=== PATIENT | female | born 1990 | race Caucasian/White ===

== ENCOUNTER 2019-11-25 16:33 | Emergency (ER) | payer MEDICAID, SELFPAY ==
[2019-11-25 16:37] VITALS: BP 155/108; PULSE 85; RESP 15; TEMP 36.9; O2SAT 97; BMI 35.9
--- NOTE | 2019-11-25 16:47 | W.ED.GENADLT ---
HPI - General Adult General: Chief complaint: Dental/Oral Stated complaint: dental pain Time Seen by Provider: 11/25/19 16:42 History of Present Illness: HPI narrative: Patient complains about right upper molar pain x2 to 3 days Tylenol is not helping her at all he has a history of dental caries and abscesses has a dental appointment next week cannot stand the discomfort right now and would like something to help. MD complaint: Dental caries Onset (ago): day(s) Location: mouth Severity: moderate and similar to prior episodes Quality: aching Pain Consistency: constant Relieving factors: none Associated symptoms: Deny chest pain, dyspnea, fevers/chills, headache(s), nausea, rash or vomiting Review of Systems Const: Denies: fever, chills or body aches Eyes: Denies: change in vision or blurry vision ENMT: Reports: other (Dental pain); Denies: throat pain or nasal congestion Card: Denies: chest pain or shortness of breath on exertion Resp: Denies: shortness of breath, productive cough or non-productive cough GI: Denies: abdominal pain, nausea or vomiting Musc: Denies: extremity pain Skin/Breast: Denies: rash Neuro: Denies: headache Psych: Denies: anxiety or depression [place]/Lymph: Denies: easy bruising PFSH ED PFSH: Social History Smoking and tobacco status: current every day smoker Physical Exam Const: COMMON NORMALS: no apparent distress, average body habitus and oriented x3 HENMT: COMMON NORMALS: normocephalic HEAD & SCALP: normal to inspection and normocephalic FACE & SINUS: normal facial exam MOUTH: other (Patient has gingivitis inflammation gums dental caries tenderness to the gum above the upper right molars.) Eye: COMMON NORMALS: conjunctivae normal GENERAL EYE: normal appearance of both eyes CONJUNCTIVA: Yes conjunctivae normal Neck/C-Spine: COMMON NORMALS: no JVD Chest: COMMONS NORMALS: inspection of chest normal Resp: COMMON NORMALS: normal respiratory effort and clear to auscultation bilaterally AUSCULTATION: clear to auscultation bilaterally Cardio: COMMON NORMALS: no JVD, regular rate and regular rhythm RATE: regular rate RHYTHM: regular rhythm GI: COMMON NORMALS: normal to inspection, nondistended, normoactive bowel sounds Extremity: COMMON NORMALS: normal to inspection and full ROM Neuro: COMMON NORMALS: oriented x3 Course Vital Signs: Vital signs: Vital Signs Temperature 98.4 F 11/25/19 16:37 Pulse Rate 85 11/25/19 16:37 Respiratory Rate 15 11/25/19 16:37 Blood Pressure 155/108 11/25/19 16:37 Pulse Oximetry 97 11/25/19 16:37 Coding Level of Care Code ED Fruit Pitter for Dennis Romero
== END 2019-11-25 16:56 | disposition home or self-care (01) ==
LOC: ER 17:19
PROVIDERS: Emergency Provider Nurse Practitioner Family; Family Provider Family Medicine
DX: K02.9 Dental caries, unspecified (principal); K05.10 Chronic gingivitis, plaque induced; F17.200 Nicotine dependence, unspecified, uncomplicated
CPT/HCPCS: 99281

== ENCOUNTER → 2020-01-13 13:22 | Outpatient (BNVA) | payer MEDICAID, SELFPAY | PROVIDERS: Family Provider Family Medicine; Visit Provider Nurse Practitioner Family | DX: R30.0 Dysuria (principal); N30.00 Acute cystitis without hematuria; N76.0 Acute vaginitis | CPT/HCPCS: 81000 ==

== ENCOUNTER 2020-04-29 17:35 | Emergency (ER) | payer MEDICAID, SELFPAY ==
[2020-04-29 17:39] VITALS: BP 156/97; PULSE 71; RESP 20; TEMP 36.6; O2SAT 98; BMI 37.5
--- NOTE | 2020-04-29 17:49 | ED_ITS ---
Documented by User: [email or web address] Castro 04/29/20 19:00 HPI - Skin/Abscess/Foreign Bdy General: Chief complaint: Skin/Abscess/Foreign Body Stated complaint: pain on ribs and back Time Seen by Provider: 04/29/20 17:49 PFSH ED PFSH: Social History Smoking and tobacco status: current every day smoker Course Vital Signs: Vital signs: Vital Signs Temperature 97.9 F 04/29/20 17:39 Pulse Rate 69 04/29/20 18:30 Respiratory Rate 14 04/29/20 18:30 Blood Pressure 141/90 04/29/20 18:30 Pulse Oximetry 98 04/29/20 18:30 MDM - Skin/Abscess/Foreign Bdy MDM Narrative: Medical decision making narrative: I had originally started chart on patient but Dr. Howard ended up seeing her. I had no active participati on in pts care. Discharge Plan Discharge Patient Disposition: Home Clinical Impression: Herpes zoster Qualifiers: Herpes zoster complications: without complications Qualified Code(s): B02.9 - Zoster without complications Condition: Stable Prescriptions: [place] 5-325 mg tablet 1 tab PO Q6H PRN (Reason: pain) Qty: 14 RF: 0 No Action valacyclovir 1 gram tablet 1,000 mg PO TID 7 Days Qty: 21 RF: 0 lidocaine HCl 2 % cream 1 applic TOPICAL TID PRN (Reason: pain) Qty: 118 RF: 0 Discharge Orders: Discharge Order (Routine); Ordered 04/29/20 Ordered By: Paco Howard Referrals: Angelia Ochoa DO [Primary Care Provider] - 1-3 days Discharge Diet: Advance as tolerated Discharge Activity: Resume usual activity Patient Instructions: Herpes Zoster (ED) Discharge Date/Time: 04/29/20 18:32 Coding Level of Care Code ED Inventory Specialist for Chg Fwd Exam Comprehensive Documented by User: Paco Howard MD 04/29/20 18:25 HPI - Skin/Abscess/Foreign Bdy General: Chief complaint: Skin/Abscess/Foreign Body Stated complaint: pain on ribs and back Time Seen by Provider: 04/29/20 17:49 Source: patient Mode of arrival: ambulatory Limitations: no limitations History of Present Illness: HPI narrative: 21-year-old female who was diagnosed with shingles 3 days ago. She states she is on acyclovir but she is not on any pain meds and has had increased pain. She states her pain is sharp in nature and rates an 8 out of 10. She states she is here for something for pain. Associated symptoms: Deny chills, fever(s), nausea or vomiting Review of Systems Const: Denies: fever(s), chills, body aches or change in appetite Eyes: Denies: blurry vision or eye discomfort ENMT: Denies: throat pain or dental pain Card: Denies: chest pain Resp: Denies: dyspnea GI: Denies: abdominal pain, nausea, vomiting or diarrhea : Denies: dysuria Musc: Denies: neck pain or back pain Skin/Breast: Reports: rash Neuro: Denies: headache(s) Psych: Denies: depression [place]/Lymph: Denies: easy bruising All/Imm: Denies: urticaria PFSH ED PFSH: Social History Smoking and tobacco status: current every day smoker Physical Exam Const: COMMON NORMALS: no acute distress, patient oriented x3 and healthy appearing HENMT: COMMON NORMALS: normocephalic and atraumatic HEAD & SCALP: normoc ephalic and atraumatic Eye: COMMON NORMALS: Equal, round and reactive pupils present and EOMs intact bilaterally PUPIL: Yes Equal, round and reactive pupils present Neck/C-Spine: COMMON NORMALS: full ROM and supple Chest: COMMONS NORMALS: normal inspection of the chest and normal palpation of entire chest wall Resp: COMMON NORMALS: normal respiratory effort, No retractions, No use of accessory muscles and clear to auscultation bilaterally AUSCULTATION: clear to auscultation bilaterally Cardio: COMMON NORMALS: regular rate, regular rhythm and No murmurs present (Cardio) RATE: regular rate RHYTHM: regular rhythm GI: COMMON NORMALS: Normal to inspection, nondistended, normoactive bowel sounds present, Soft to palpation, non-tender and no masses PALPATION: Yes Soft to palpation Extremity: COMMON NORMALS: normal to inspection and full ROM Neuro: COMMON NORMALS: patient oriented x3, moves all extremities and no focal motor deficits Psych: COMMON NORMALS: mental status grossly normal, Normal thought process present and cooperative THOUGHT PROCESS: Normal thought process present Skin: COMMON NORMALS: no wounds NARRATIVE SKIN EXAM: Shingles appearing rash under left breast and left back Course Vital Signs: Vital signs: Vital Signs Temperature 97.9 F 04/29/20 17:39 Pulse Rate 69 04/29/20 18:30 Respiratory Rate 14 04/29/20 18:30 Blood Pressure 141/90 04/29/20 18:30 Pulse Oximetry 98 04/29/20 18:30 MDM - Skin/Abscess/Foreign Bdy MDM Narrative: Medical decision making narrative: Patient presents here with a shingles is already on acyclovir and . She states that she needs something for pain she has had no pain meds and is unable to sleep. Will prescribe her hydrocodone and she is stable for discharge. Discharge Plan Discharge Patient Disposition: Home Clinical Impression: Herpes zoster Qualifiers: Herpes zoster complications: without complications Qualified Code(s): B02.9 - Zoster without complications Condition: Stable Prescriptions: [place] 5-325 mg tablet 1 tab PO Q6H PRN (Reason: pain) Qty: 14 RF: 0 No Action valacyclovir 1 gram tablet 1,000 mg PO TID 7 Days Qty: 21 RF: 0 lidocaine HCl 2 % cream 1 applic TOPICAL TID PRN (Reason: pain) Qty: 118 RF: 0 Discharge Orders: Discharge Order (Routine); Ordered 04/29/20 Ordered By: Paco Howard Referrals: Angelia Ochoa DO [Primary Care Provider] - 1-3 days Discharge Diet: Advance as tolerated Discharge Activity: Resume usual activity Patient Instructions: Herpes Zoster (ED) Discharge Date/Time: 04/29/20 18:32 Coding Level of Care Code ED Inventory Specialist for Allig Fwd Exam Comprehensive
[2020-04-29] MEDS: HYDROcodone-acetaminophen 7.5-325 mg Tablet 1 TAB PO (18:27)
[2020-04-29 18:30] VITALS: BP 141/90; PULSE 69; RESP 14; O2SAT 98
== END 2020-04-29 18:32 | disposition home or self-care (01) ==
PROVIDERS: Emergency Provider Emergency Medicine; PCP Family Medicine
DX: B02.9 Zoster without complications (principal); F17.210 Nicotine dependence, cigarettes, uncomplicated
CPT/HCPCS: 12345; 99281; 99283

== ENCOUNTER → 2020-05-30 10:50 | Outpatient (BNVA) | payer MEDICAID, SELFPAY | PROVIDERS: PCP Family Medicine; Visit Provider Internal Medicine | DX: J06.9 Acute upper respiratory infection, unspecified (principal); Z20.818 Contact with and (suspected) exposure to other bacterial communicable diseases | CPT/HCPCS: 87635 ==

== ENCOUNTER → 2020-09-18 15:01 | Outpatient (BNVA) | payer MEDICAID, SELFPAY | PROVIDERS: PCP Family Medicine; Visit Provider Nurse Practitioner Family | DX: N39.0 Urinary tract infection, site not specified (principal); B37.3 Candidiasis of vulva and vagina; R31.9 Hematuria, unspecified | CPT/HCPCS: 81000 ==

== ENCOUNTER 2020-11-11 19:24 | Emergency (ER) | payer MEDICAID, SELFPAY ==
[2020-11-11 19:43] VITALS: BP 143/90; PULSE 75; RESP 14; TEMP 36.6; O2SAT 98; BMI 37.8
--- NOTE | 2020-11-11 20:45 | W.ED.ABDPA2 ---
HPI - Abdominal Pain General: Chief Complaint: Abdominal Pain Stated Complaint: headache, whole midsection cramping, Time Seen by Provider: 11/11/20 20:20 Source: patient Mode of arrival: ambulatory Limitations: no limitations PFSH ED PFSH: Social History (Updated 09/18/20 @ 14:59 by YAZ Baum) Smoking and tobacco status: current every day smoker Alcohol intake: never Course Vital Signs: Vital signs: Vital Signs Temperature 97.9 F 11/11/20 19:43 Pulse Rate 75 11/11/20 19:43 Respiratory Rate 14 11/11/20 19:43 Blood Pressure 143/90 11/11/20 19:43 Pulse Oximetry 98 11/11/20 19:43 Discharge Plan Discharge Condition: Good Prescriptions: No Action ciprofloxacin HCl [Cipro] 500 mg tablet 500 mg PO BID 7 Days Qty: 14 RF: 0 fluconazole [Diflucan] 150 mg tablet 150 mg PO ONCE Qty: 1 RF: 0 Coding Level of Care Code ED Vacuum Drum Drier Operator for Dennis Romero
--- NOTE | 2020-11-11 21:00 | ED_ITS ---
HPI - Female Genitourinary General: Chief complaint: Abdominal Pain Stated complaint: headache, whole midsection cramping, Time Seen by Provider: 11/11/20 20:20 Source: patient Mode of arrival: ambulatory Limitations: no limitations History of Present Illness: HPI Narrative: Patient is a 30-year-old female who presents to ED today with a complaint of vaginal spotting and lower abdominal cramping. She tells me LMP was 10/12. She states she is concerned because she had spotting with her last miscarriage. She has since had a tubal ligation which is why she is very concerned today. She is not complaining of any urinary symptoms. She is not having any nausea, vomiting, diarrhea, constipation. She has not been running fevers. She denies vaginal discharge or vaginal odor. She denies new sexual partners or concern for STDs. MD elicited complaint: vaginal bleeding (spotting) Pertinent past history: prior miscarriages (one) and tubal ligation Onset (ago): day(s) Severity: mild Vaginal discharge: none Vaginal bleeding: scant Exacerbating factors: none Relieving factors: none Associated symptoms: Deny abdominal pain, headache(s), nausea or vaginal discharge Treatment prior to arrival: none Possible : unsure if Date of Last Menstrual Period: 10/12/20 Related Data: : 5 Review of Systems Const: Denies: fever(s), chills, body aches, fatigue or malaise ENMT: Denies: throat pain or odynophagia Card: Denies: chest pain Resp: Denies: dyspnea GI: Denies: abdominal pain, nausea, vomiting, diarrhea, change in bowel habits or change in stool character : Reports: vaginal bleeding and pelvic pain; Denies: flank pain, difficulty voiding, dysuria, urinary frequency, urinary urgency, urinary hesitancy, hematuria, genital lesions, genital pruritis, vaginal odor or vaginal discharge Musc: Denies: neck pain or back pain Skin/Breast: Denies: rash Neuro: Denies: headache(s), numbness in extremities, weakness in extremities or sensory changes PFSH ED PFSH: Social History (Updated 09/18/20 @ 14:59 by YAZ Baum) Smoking and tobacco status: current every day smoker Alcohol intake: never Female Reproductive History: Date of last menstrual period: 10/12/20 : 5 Physical Exam Const: COMMON NORMALS: no acute distress, patient oriented x3, no limitations and alert GENERAL APPEARANCE: cooperative NUTRITIONAL APPEARANCE: obese morbidly obese ORIENTATION/CONSCIOUSNESS: Yes awake, Yes oriented to person, Yes oriented to place and Yes oriented to time HENMT: COMMON NORMALS: normocephalic and atraumatic HEAD & SCALP: normocephalic and atraumatic Resp: COMMON NORMALS: normal respiratory effort and clear to auscultation bilaterally AUSCULTATION: clear to auscultation bilaterally Cardio: COMMON NORMALS: regular rate and regular rhythm RATE: regular rate RHYTHM: regular rhythm GI: COMMON NORMALS: Normal to inspection, nondistended, normoactive bowel sounds present, Soft to palpation, No hepatosplenomegaly present and no masses INSPECTION: Yes normal to inspection PALPATION: Yes Soft to palpation, Yes Tenderness to palpation present (GI) (mild tenderness throughout mid and lower abdomen; non-surgical exam) and Yes No hepatosplenomegaly present : COMMON NORMALS: Yes no CVA tenderness BLADDER/KIDNEY EXAM: Yes no CVA tenderness Back/Pelvis: COMMON NORMALS: no CVA tenderness Extremity: COMMON NORMALS: normal to inspection GENERAL: Yes normal exam except as noted Neuro: COMMON NORMALS: patient oriented x3 SENSORIUM/ORIENTATION: Yes alert, Yes oriented to person, Yes oriented to place and Yes oriented to time Skin: COMMON NORMALS: no rashes or lesions noted GENERAL SKIN EXAM: no rashes or lesions noted Course Vital Signs: Vital signs: Vital Signs Temperature 97.9 F 11/11/20 19:43 Pulse Rate 75 11/11/20 19:43 Respiratory Rate 14 11/11/20 19:43 Blood Pressure 143/90 11/11/20 19:43 Pulse Oximetry 98 11/11/20 19:43 MDM - Female MDM Narrative: Medical decision making narrative: Patient has a non-surgical abdomen. Her vital signs are stable. is negative. She has no complaints of vaginal discharge, vaginal odor, or concern for STDs. Patient defers pelvic exam. UA is significant for a urinary tract infection. I do not see any need for emergent labs or imaging at this time. She agrees to follow-up with PCP in 3 to 5 days for re-evaluation. We discussed signs and symptoms that would warrant a repeat emergency evaluation. Patient verbalizes understanding. Lab Data: Labs: Lab Results 11/11/20 11/11/20 Range/Units 21:00 21:00 HCG, Qual Negative (Negative) Urine Color Yellow (Yellow) Urine Appearance Sl hazy (CLEAR) Urine pH 5 (5-7) Ur Specific Gravit y 1.025 (1.005-1.030) Urine Protein Neg (Negative) Urine Glucose (UA) Norm (Normal) Urine Ketones Negative (Negative) Urine Blood 2+ H (Negative) Urine Nitrate Positive H (Negative) Urine Bilirubin Neg (Negative) Urine Urobilinogen Norm (Negative) mg/dL Ur Leukocyte Yuko ase Negative (Negative) Urine RBC 5-10 H (0-2) /hpf Urine WBC 0-4 H (0-5) /hpf Ur Squamous Epith Cells 5-10 H (0-5) /hpf Amorphous Sediment Not Reportable Urine Bacteria 3+ H (NONE) /hpf Discharge Plan Discharge Patient Disposition: Home Clinical Impression: Acute cystitis with hematuria Condition: Stable Prescriptions: New Macrodantin 100 mg capsule 100 mg PO BID 7 Days Qty: 14 RF: 0 No Action ciprofloxacin HCl [Cipro] 500 mg tablet 500 mg PO BID 7 Days Qty: 14 RF: 0 fluconazole [Diflucan] 150 mg tablet 150 mg PO ONCE Qty: 1 RF: 0 Discharge Orders: Discharge ED (Routine); Ordered 11/11/20 Ordered By: Patricia Wilson Referrals: Angelia Ochoa DO [Primary Care Provider] - Patient Instructions: Urinary Tract Infection in Women (ED) Coding Level of Care Code ED Relationship Associate for Allig Fwd Exam Comprehensive
[2020-11-11 21:05] LABS: Urine Appearance SL Hazy (CLEAR); Urine Color Yellow (Yellow); pH Urine 5 (5-7)
[2020-11-11 21:06] LABS: Bilirubin Urine Neg (Negative); Blood Urine 2+ (Negative); Glucose Urine UA Norm (Normal); Ketones Urine Negative (Negative); Leukocyte Esterase Urine Negative (Negative); Nitrate Urine Positive (Negative); Protein Urine Neg (Negative); Specific Gravity, Urine 1.025 (1.005-1.030); Urobilinogen Urine Norm (Negative)
[2020-11-11 21:07] LABS: HCG Qualitative Urine. Negative (Negative)
[2020-11-11 21:09] LABS: WBC Urine 0-4 /hpf (0-5)
[2020-11-11 21:10] LABS: Add Urine Culture? Yes; Bacteria Urine 3+ /hpf
[2020-11-11 21:54] VITALS: PULSE 67; RESP 18; O2SAT 98
== END 2020-11-11 21:56 | disposition home or self-care (01) ==
PROVIDERS: Family Medicine; Emergency Provider Physician Assistant; PCP Family Medicine
DX: N30.01 Acute cystitis with hematuria (principal); F17.210 Nicotine dependence, cigarettes, uncomplicated
CPT/HCPCS: 12345; 81001; 81025; 87086; 99281; 99282

== ENCOUNTER → 2020-11-28 14:21 | Outpatient (BNVA) | payer MEDICAID, SELFPAY | PROVIDERS: PCP Family Medicine; Visit Provider Nurse Practitioner | DX: M54.9 Dorsalgia, unspecified (principal); N39.0 Urinary tract infection, site not specified | CPT/HCPCS: 81000; 81025; 87077; 87086; 87184 ==

== ENCOUNTER → 2020-11-29 15:50 | Outpatient (BNVA) | payer MEDICAID, SELFPAY | PROVIDERS: PCP Family Medicine; Visit Provider Obstetrics & Gynecology | DX: N73.0 Acute parametritis and pelvic cellulitis (principal); N91.5 Oligomenorrhea, unspecified; N93.8 Other specified abnormal uterine and vaginal bleeding | CPT/HCPCS: 83001; 84146; 84443; 84702; 85025 ==

== ENCOUNTER → 2020-12-10 13:39 | Outpatient (BNVA) | payer MEDICAID, SELFPAY | PROVIDERS: PCP Family Medicine; Visit Provider Obstetrics & Gynecology | DX: R10.2 Pelvic and perineal pain (principal); N91.3 Primary oligomenorrhea | CPT/HCPCS: 76830 ==

== ENCOUNTER → 2021-01-24 10:29 | Outpatient (BNVA) | payer MEDICAID, SELFPAY | PROVIDERS: PCP Family Medicine; Visit Provider Obstetrics & Gynecology | DX: Z01.812 Encounter for preprocedural laboratory examination (principal); Z20.822 Contact with and (suspected) exposure to COVID-19 | CPT/HCPCS: 87635 ==

== ENCOUNTER 2021-01-29 08:36 | Day surgery (SDC) | payer MEDICAID, SELFPAY ==
[2021-01-27 11:35] VITALS: BMI 40.5
--- NOTE | 2021-01-27 12:00 | ANES.PREANE2 ---
Pre-Anesthetic Assessment Pre-Anesthetic Assessment: Height/Weight: Height 1.63 m Weight 107.048 kg Preop Diagnosis: Cardiac pelvic pain Proposed Procedure: Operation Date: 01/29/21 08:00 Proposed Procedures p Laparoscopy Diagnostic 52569 R10.2(Not Applicable) - Jeffrey Pretty MD Social: Social History: Alcohol and Tobacco Exam: Pre-Anes Outpt Exam: alert and oriented x 3 Airway: Submandibular: WNL Cervical ROM: WNL MP: 2 Pulmonary: Pulmonary: None reported CV/HEM: CV/HEM: None reported : : UTI Anesthetic Plan: ASA status: 2 Anesthesia: Anesthesia Evaluation and General PFSH Anesthesia PFSH: Medical History Cervical cancer Chronic pelvic pain in female Surgical History H/O section H/O LEEP H/O tubal ligation S/P tonsillectomy Family History Mother Hypertension Diabetes Hyperlipidemia Thyroid condition Family/Other Breast cancer paternal aunt, age onset unknown Father Colon cancer age onset unknown Denies family history of Ovarian cancer Clotting disorder Heart disease Anesthesia complication Bleeding disorder Uterine cancer Stroke Social History (Updated 01/27/21 @ 09:00 by Nelida Garvey RN) Smoking and tobacco status: current every day smoker cigarettes Packs smoked per day: 0.5 Alcohol intake: current Alcohol intake frequency: holidays/special occasions only Alcohol type: wine Substance/Drug Use: never Female Reproductive History: Date of last menstrual period: 01/20/21 Data Anesthesia Cardiac Studies: No Data to Display
[2021-01-27 12:14] LABS: Add Urine Microscopic? YES; Bilirubin Urine Neg (Negative); Blood Urine Neg (Negative); Glucose Urine UA Norm (Normal); Ketones Urine Negative (Negative); Leukocyte Esterase Urine Negative (Negative); Nitrate Urine Positive (Negative); Protein Urine Neg (Negative); Specific Gravity, Urine 1.015 (1.005-1.030); Urine Appearance Cloudy (CLEAR); Urine Color Yellow (Yellow); Urobilinogen Urine Norm (Negative); pH Urine 5 (5-7)
[2021-01-27 12:29] LABS: Basophils # 0.1 10^3/uL (0.0-0.1); Basophils % 0.5 %; Eosinophils # 0.2 10^3/uL (0.0-0.8); Eosinophils % 2.5 %; Hematocrit 45.3 % (37.0-47.0); Hemoglobin 14.9 g/dL (11.5-15.3); Lymphocytes # 4.3 10^3/uL (0.8-4.8); Lymphocytes % 47.5 %; Mean Corpuscular HGB Conc 32.9 g/dL (30.0-36.0); Mean Corpuscular Hemoglobin 29.7 pg (28.0-34.0); Mean Corpuscular Volume 90.2 fL (81-99); Mean Platelet Volume 11.4 fL (7.4-10.4); Monocytes # 0.6 10^3/uL (0.2-0.9); Monocytes % 6.3 %; Neutrophils % 42.9 %; Nucleated Red Blood Cells % 0 %; Platelet Count 194 10^3/cmm (130-400); Red Blood Count 5.02 10^6/uL (4.1-5.3); White Blood Count 9.1 10^3/uL (4.0-10.0)
[2021-01-27 12:30] LABS: Blood Urea Nitrogen 6 mg/dL (6-20); Calcium 8.9 mg/dL (8.5-10.5); Carbon Dioxide 24 mmol/L (22-29); Chloride 103 mmol/L (98-107); Glomerular Filtration Rate 188.7 mL/min (90-130); Glucose 86 mg/dL (65-115); Osmolality Calculated 283 mOsm/kg (285-295); Sodium 138 mmol/L (136-145)
[2021-01-27 12:33] LABS: Bacteria Urine TRACE /hpf; RBC Urine 0-4 /hpf (0-2); WBC Urine 0-4 /hpf (0-5)
[2021-01-27 12:34] LABS: Add Urine Culture? No; Amorphous Sediment Urine 2+ /hpf
[2021-01-28 01:56] LABS: OR HCG Qualitative Urine Negative (Negative)
[2021-01-29 09:02] LABS: OR HCG Qualitative Urine Negative (Negative)
[2021-01-29 09:06] VITALS: BP 157/109; PULSE 78; RESP 16; TEMP 36.6; O2SAT 99
[2021-01-29] MEDS: sodium chloride 0.9% 1,000 ML 30 ML IV (09:19)
--- NOTE | 2021-01-29 09:31 | P.ANESUD_ITS ---
Pre-Anesthetic Update Pre-Anesthetic Assessment: Date of Surgery/Procedure: 01/29/21 Preop Marcy gnosis: Cardiac pelvic pain Proposed Procedure: Operation Date: 01/29/21 10:00 Proposed Procedures p Laparoscopy Diagnostic 96033 R10.2(Not Applicable) - Jeffrey Pretty MD Any changes to Pre-Anesthetic Assessment?: No Last Intake: Intake Last Liquid Date 01/28/21 Last Liquid Time 22:00 Last Solid Date 01/28/21 Last Solid Time 22:00 Labs Last 48hrs: Laboratory Results - last 48 hr 01/27/21 01/27/21 01/27/21 11:45 11:45 11:45 WBC 9.1 RBC 5.02 Hgb 14.9 Hct 45.3 MCV 90.2 MCH 29.7 MCHC 32.9 RDW 13.0 Plt Count 194 MPV 11.4 H Neut % (Auto) 42.9 Lymph % (Auto) 47.5 [place] % (Auto) 6.3 Eos % (Auto) 2.5 Baso % (Auto) 0.5 Neut # (Auto) 3.90 Lymph # (Auto) 4.3 [place] # (Auto) 0.6 Eos # (Auto) 0.2 Baso # (Auto) 0.1 Nucleated RBC % (a uto) 0 Nucleated RBCs # 0.0 Sodium Potassium Chloride Carbon Dioxide Anion Gap BUN Creatinine GFR Calculation Glucose Calculated Osmolal ity Calcium Urine Color Yellow Urine Appearance Cloudy Urine pH 5 Ur Specific Gravit y 1.015 Urine Protein Neg Urine Glucose (UA) Norm Urine Ketones Negative Urine Blood Neg Urine Nitrate Positive H Urine Bilirubin Neg Urine Urobilinogen Norm Ur Leukocyte Yuko ase Negative Urine RBC 0-4 H Urine WBC 0-4 H Ur Squamous Epith Cells 5-10 H Amorphous Sediment 2+ Urine Bacteria Trace Urine HCG, Qual Negative Blood Type Rho(D) Type Antibody Screen 01/27/21 01/27/21 01/29/21 11:45 11:45 08:50 WBC RBC Hgb Hct MCV MCH MCHC RDW Plt Count MPV Neut % (Auto) Lymph % (Auto) [place] % (Auto) Eos % (Auto) Baso % (Auto) Neut # (Auto) Lymph # (Auto) [place] # (Auto) Eos # (Auto) Baso # (Auto) Nucleated RBC % (a uto) Nucleated RBCs # Sodium 138 Potassium 4.0 Chloride 103 Carbon Dioxide 24 Anion Gap 15.0 BUN 6 Creatinine 0.4 L GFR Calculation 188.7 H Glucose 86 Calculated Osmolal ity 283 L Calcium 8.9 Urine Color Urine Appearance Urine pH Ur Specific Gravit y Urine Protein Urine Glucose (UA) Urine Ketones Urine Blood Urine Nitrate Urine Bilirubin Urine Urobilinogen Ur Leukocyte Yuko ase Urine RBC Urine WBC Ur Squamous Epith Cells Amorphous Sediment Urine Bacteria Urine HCG, Qual Negative Blood Type A Positive Rho(D) Type Positive / 4+ Antibody Screen Negative Vitals: Temperature 97.9 F 01/29/21 09:06 Temperature Source Temporal Artery S can 01/29/21 09:06 Pulse Rate 78 01/29/21 09:06 Respiratory Rate 16 01/29/21 09:06 Blood Pressure 157/109 01/29/21 09:06 Blood Pressure Radha n 125 01/29/21 09:06 Pulse Oximetry 99 01/29/21 09:06 Oxygen Delivery Me thod 01/29/21 09:06 Exam: Pre-Anes Outpt Exam: alert, oriented x 3, clear to auscultation bilaterally and regular rate & rhythm Cardiac Studies: No Data to Display
[2021-01-29] MEDS: vancomycin 1,000 MG in sodium chloride 0.9% 250 ML 250 MG IV (10:36)
--- NOTE | 2021-01-29 11:01 | W.PM.OPSUD ---
Surgery/Procedure H&P Update DATE OF PROCEDURE: January 29, 2021 DATE H&P PERFORMED: 01/27/21 H&P UPDATE INFORMATION: I have reviewed H&P completed within last 30 days, I have examined patient prior to procedure and No changes to prior documentation PREOP DIAGNOSIS: Cardiac pelvic pain PLANNED PROCEDURE: Operation Date: 01/29/21 10:00 Proposed Procedures p Laparoscopy Diagnostic 35717 R10.2(Not Applicable) - Jeffrey Pretty MD
--- NOTE | 2021-01-29 12:01 | P.OP_ITS ---
Operative Report Date of procedure: January 29, 2021 Pre-op Diagnosis: Chronic pelvic pain Post-op diagnosis: same Post-op Findings: Pelvic adhesions Procedure Done: Diagnostic laparoscopy. Lysis of adhesions Surgeon: Jeffrey Pretty MD Anesthesia: General Estimated blood loss (mL): 5 IV fluids (mL): 400 Urine output (mL): 100 Findings: Omental adhesions to the anterior abdominal wall and filmy adhesions on left adnexa. Condition: stable Disposition: PACU Brief History: 30-year-old female with history of chronic pelvic pain Procedure: DESCRIPTION OF PROCEDURE: After informed consent, the patient was taken to the operating room where general anesthesia was administered. The patient was examined under anesthesia and found to have a normal uterus with normal adnexa. She was placed in the dorsal lithotomy position and prepped and draped in sterile fashion. Pre- Procedure Time-Out verifying the correct patient identity, correct procedure verified with consent, correct site and side, correct patient position, availability of correct implants and any special equipment or requirements was performed and acknowledge by the OR team. A weighted speculum was placed in the vagina, and the anterior lip of cervix was grasped with the single toothed tenaculum. A uterine manipulator was advanced into the endocervical. Tenaculum was removed after uterine manipulator was secured. The speculum was removed from the vagina. An intraumbilical incision was made with a scalpel. While tenting up on the abdomen, a Verres needle with sleeve was admitted into the intra-abdominal cavity. A saline drop test was performed and noted to be within normal limits. Pneumoperitoneum was attained with 4 liters of carbon dioxide. The Verres needle was removed. A 5 mm trocar and sleeve were admitted into the abdomen and laparoscopic confirmation of location was achieved. Omental adhesions were noted on lower midline anterior abdominal wall. A second incision was made left lower quadrant, and a 5 mm trocar and sleeve were admitted into the abdomen under direct, laparoscopic visualization without complication. Abdominal survey revealed normal abdominal anatomy but omental adhesions to suprapubic anterior abdominal wall. The pelvic survey shows normal uterus, left and right adnexa. But bladder adhesions were noted at the lower segment of the uterus. A 5 mm blunt probe was advanced through the second trocar sleeve, and light manipulation of ovaries and uterus to assess the posterior aspects was performed and was normal. Then the Carbon dioxide was allowed to escape from the abdomen. The instruments were removed, and skin cover with a bandage. The instruments were removed from the vagina, and excellent hemostasis was noted. The patient tolerated the procedure well, and sponge, lap and needle count were correct times two. The patient taken to the recovery room in good condition.
[2021-01-29 12:04] VITALS: BP 126/68; PULSE 70; RESP 12; TEMP 36.5; O2SAT 96
[2021-01-29] MEDS: ondansetron 2 mg/ML SDV 2 mL 4 MG IVP (12:07)
[2021-01-29 12:10] VITALS: BP 120/73; PULSE 71; RESP 18; O2SAT 95
[2021-01-29 12:15] VITALS: BP 114/55; PULSE 77; RESP 18; TEMP 36.7; O2SAT 94
[2021-01-29 12:20] VITALS: BP 118/80; PULSE 70; RESP 16; TEMP 36.6; O2SAT 95
[2021-01-29] MEDS: HYDROcodone-acetaminophen 5-325 mg Tablet 1 TAB PO (12:32)
[2021-01-29 12:35] VITALS: BP 129/80; PULSE 64; RESP 16; TEMP 36.7; O2SAT 95
--- NOTE | 2021-01-29 13:27 | ANE.PACU2 ---
Inpatient post-anesthesia follow up: Airway intact: Yes Vital signs: Temperature 98.1 F Pulse Rate 64 Respiratory Rate 16 Blood Pressure 129/80 Pulse Oximetry 95 Oxygen Delivery Me thod Room Air Oxygen Flow Rate Fraction of Inspir ed Oxygen Hydration adequate: Yes Nausea and vomiting: No Pain level: 2 Mental status: Baseline
== END 2021-01-29 13:30 | disposition home or self-care (01) ==
PROVIDERS: Anesthesiology; PCP Family Medicine; Visit Provider Obstetrics & Gynecology
PROC: (CPT 49320; principal; 2021-01-29 10:00)
PROC: (CPT 49320; 2021-01-29 10:00)
DX: N73.6 Female pelvic peritoneal adhesions (postinfective) (principal); R10.2 Pelvic and perineal pain; G89.29 Other chronic pain; F17.210 Nicotine dependence, cigarettes, uncomplicated
CPT/HCPCS: 49320; 36415; 80048; 81001; 81025; 84703; 85025; 86850; 86900; 96365; J1100; J2405; J2704; J2710; J3010; J3370; J3490; J7030; J7050

== ENCOUNTER 2021-04-01 22:22 | Emergency (ER) | payer MEDICAID, SELFPAY ==
[2021-04-01 22:28] VITALS: BP 130/89; PULSE 85; RESP 16; TEMP 36.6; O2SAT 97; BMI 39.4
--- NOTE | 2021-04-01 22:49 | W.ED.GENADLT ---
HPI - General Adult General: Chief complaint: General Medical Stated complaint: swollen anus Time Seen by Provider: 04/01/21 22:32 History of Present Illness: HPI narrative: Patient is a 30-year-old female comes to the ED with rectal pain. she has a history of hemorrhoids in the past. Patient states that her anus hurts whenever she wipes herself or when sitting. There is red blood on toilet paper when she wipes. Symptoms of pain started yesterday, but patient says she has been having some itching down by her anus as well. Denies any lesions or sores on anus or vagina. Associated symptoms: Deny chest pain, dyspnea, headache(s), nausea, rash, palpitations or vomiting Review of Systems Const: Denies: fever(s), chills or fatigue Eyes: Denies: change in vision or eye discomfort ENMT: Denies: throat pain, odynophagia, nasal discharge or nasal congestion Card: Denies: chest pain, palpitations, edema, swelling of feet/ankles, dyspnea on exertion or orthopnea Resp: Denies: dyspnea, productive cough or non-productive cough GI: Reports: rectal pain; Denies: abdominal pain, nausea, vomiting, diarrhea, constipation or hematochezia : Denies: flank pain, dysuria or hematuria Musc: Denies: neck pain, back pain or extremity swelling Skin/Breast: Denies: rash or new lesions Neuro: Denies: headache(s), numbness in extremities or weakness in extremities PFSH ED PFSH: Medical History Aftercare following surgery of the genitourinary system Cervical cancer Chronic pelvic pain in female Surgical History H/O section H/O LEEP H/O tubal ligation S/P tonsillectomy Family History Mother Hypertension Diabetes Hyperlipidemia Thyroid condition Family/Other Breast cancer paternal aunt, age onset unknown Father Colon cancer age onset unknown Denies family history of Ovarian cancer Clotting disorder Heart disease Anesthesia complication Bleeding disorder Uterine cancer Stroke Social History Smoking and tobacco status: current every day smoker cigarettes Packs smoked per day: 0.5 Quit status (tobacco): not considering quitting Second hand smoke exposure: Yes Alcohol intake: current Alcohol intake frequency: holidays/special occasions only Alcohol type: wine Desire information about alcohol rehabilitation?: No Desire information about substance/drug rehabilitation?: No Female Reproductive History: Date of last menstrual period: 03/25/21 Physical Exam Const: COMMON NORMALS: no acute distress, patient oriented x3 and alert GENERAL APPEARANCE: cooperative and comfortable HENMT: COMMON NORMALS: normocephalic HEAD & SCALP: normocephalic MOUTH: Normal oral and palatal mucosa present THROAT: posterior oropharynx normal and uvula midline Neck/C-Spine: COMMON NORMALS: supple GENERAL: Yes normal visual inspection Resp: COMMON NORMALS: normal respiratory effort, No retractions, No use of accessory muscles and clear to auscultation bilaterally AUSCULTATION: clear to auscultation bilaterally Cardio: COMMON NORMALS: regular rate, regular rhythm, S1 normal heart sound present, S2 normal heart sound present, No gallops present (Cardio), No clicks present (Cardio), No murmurs present (Cardio) and Peripheral pulses 2+ throughout RATE: regular rate RHYTHM: regular rhythm HEART SOUNDS: S1 normal heart sound present and S2 normal heart sound present PERIPHERAL PULSES: Peripheral pulses 2+ throughout GI: COMMON NORMALS: Normal to inspection, nondistended, normoactive bowel sounds present, Soft to palpation, non-tender and no masses INSPECTION: No Laceration(s) present (GI) PALPATION: Yes Soft to palpation RECTAL EXAM: External hemorrhoid(s) present, no lesion(s) noted, hemorrhoids External hemorrhoid(s): Yes, no laceration(s) noted and Visual inspection abnormal hemorrhoids OTHER: Rectal exam was performed while nurse Agnieszka was present and in the room. : COMMON NORMALS: Yes no CVA tenderness BLADDER/KIDNEY EXAM: Yes no CVA tenderness Back/Pelvis: COMMON NORMALS: no CVA tenderness Extremity: COMMON NORMALS: normal to inspection Neuro: COMMON NORMALS: patient oriented x3 and moves all extremities SENSORIUM/ORIENTATION: Yes alert Skin: GENERAL SKIN EXAM: dry skin Course Vital Signs: Vital signs: Vital Signs Temperature 97.9 F 04/01/21 22:28 Pulse Rate 88 04/01/21 23:56 Respiratory Rate 16 04/01/21 23:56 Blood Pressure 129/87 04/01/21 23:56 Pulse Oximetry 99 04/01/21 23:56 MDM - General Adult MDM Narrative: Medical decision making narrative: Patient is a 30-year-old female comes to the ED with rectal pain. Patient has a history of hemorrhoids. Patient says she developed some swelling around her anus along with some pain and red blood when she wipes after bowel movements. Patient says before she started having pain she was having a lot of itching down by her rectum. Visual rectal exam was performed and external hemorrhoid seen. Patient was diagnosed with external hemorrhoid and discharged home with a prescription for hydrocortisone cream. She was also told to perform sitz bath to help with symptoms as well. Drink plenty of fluids and eat foods high in fiber such as fruits and vegetables to help have soft normal bowel movements. Follow-up with PCP in 7 to 10 days for reevaluation. Return to ED precautions given. Patient steady with plan. Discharge Plan Discharge Patient Disposition: Home Clinical Impression: External hemorrhoid Condition: Stable Prescriptions: New hydrocortisone-pramoxine 1.85-1.15 % cream 1 applic VA BID PRN (Reason: hemorrhoids) Qty: 60 RF: 0 No Action Midol 500-25 mg tablet 2 tab PO Q6H PRN (Reason: Cramps) RF: 0 cetirizine [Zyrtec] 10 mg Tablet 10 mg PO DAILY PRN (Reason: allergy symp) RF: 0 ibuprofen 800 mg tablet 800 mg PO TID PRN (Reason: pain) Qty: 60 RF: 0 Discharge Orders: Discharge ED (Routine); Ordered 04/01/21 Ordered By: Darryn Bethea Referrals: Angelia Ochoa DO [Primary Care Provider] - Discharge Diet: Regular Discharge Activity: Resume usual activity Patient Instructions: Hemorrhoids (ED), Sitz Bath (GEN) Activity Restrictions/Additional Instructions: Follow-up with medical provider as directed in 5 to 7 days for reevaluation. Take sitz bath up to 3 times a day for 10 to 15 minutes each session. Take medications as prescribed. You can also purchase [id number] hemorrhoid cream such as Preparation H to use as well as needed. Make sure to eat a high-fiber diet with fruits and vegetables to limit any constipation or straining when having bowel movements. Return to the ER or your medical provider if condition worsens. Please read and understand discharge instructions. Thank you for choosing [facility] for your healthcare needs today. Please realize this is an emergency room and that we are providing you with a medical screening exam and this may not be complete and all inclusive of all the testing and or work up that you may need to determine your ailment or severity of your illness. It is very important that you follow up as instructed or that you return to the Emergency Department should you have concerns or if your condition changes or worsens in any way. Coding Level of Care Code ED [employer] for [employer] Exam Comprehensive
--- NOTE | 2021-04-01 23:34 | PC.NURSE ---
Assisted [place] with rectal exam; obvious visible hemmorhoids noted.
[2021-04-01] MEDS: HYDROcodone-acetaminophen 7.5-325 mg Tablet 1 TAB PO (23:55)
[2021-04-01 23:56] VITALS: BP 129/87; PULSE 88; RESP 16; O2SAT 99
== END 2021-04-01 23:57 | disposition home or self-care (01) ==
PROVIDERS: Emergency Provider Physician Assistant; PCP Family Medicine
DX: K64.4 Residual hemorrhoidal skin tags (principal); Z85.41 Personal history of malignant neoplasm of cervix uteri; F17.210 Nicotine dependence, cigarettes, uncomplicated
CPT/HCPCS: 99283

== ENCOUNTER → 2021-07-29 10:52 | Outpatient (BNVA) | payer MEDICAID, SELFPAY | PROVIDERS: PCP Family Medicine; Visit Provider Family Medicine | DX: Z01.419 Encounter for gynecological examination (general) (routine) without abnormal findings (principal); R10.2 Pelvic and perineal pain; G89.29 Other chronic pain; L65.9 Nonscarring hair loss, unspecified; R30.0 Dysuria; R81 Glycosuria | CPT/HCPCS: 80053; 81000; 83036; 84443; 85025; 87077; 87086; 87184; 87624 ==

== ENCOUNTER 2021-09-30 11:43 | Emergency (ER) | payer MEDICAID, SELFPAY ==
--- NOTE | 2021-09-30 12:12 | XRR_ITS ---
PROCEDURE INFORMATION: Exam: XR Chest Exam date and time: 09/30/2021 12:12 PM Age: 31 years old Clinical indication: Cough; Additional info: Cough, congestion TECHNIQUE: Imaging protocol: XR of the chest. Views: 1 view. COMPARISON: ES surgery / GI images 01/29/2021 9:57 AM FINDINGS: Lungs: Unremarkable. No consolidation. Pleural spaces: Unremarkable. No pleural effusion. No pneumothorax. Heart/Mediastinum: Unremarkable. No cardiomegaly. Bones/joints: Unremarkable. XR/XR chest 1V portable [id number] IMPRESSION: No acute findings.
[2021-09-30 12:13] VITALS: BP 126/82; PULSE 72; RESP 14; TEMP 37.1; O2SAT 97; BMI 37.8
[2021-09-30 14:11] LABS: Basophils % 0.3 %; Eosinophils # 0.2 10^3/uL (0.0-0.8); Eosinophils % 1.6 %; Hematocrit 44.2 % (37.0-47.0); Hemoglobin 14.8 g/dL (11.5-15.3); Lymphocytes # 3.8 10^3/uL (0.8-4.8); Lymphocytes % 30.3 %; Mean Corpuscular HGB Conc 33.5 g/dL (30.0-36.0); Mean Corpuscular Hemoglobin 29.9 pg (28.0-34.0); Mean Corpuscular Volume 89.3 fl (81-99); Mean Platelet Volume 11.4 fL (7.4-10.4); Monocytes # 0.7 10^3/uL (0.2-0.9); Monocytes % 5.3 %; Neutrophils # 7.77 10^3/uL (1.8-7.7); Neutrophils % 62.3 %; Nucleated Red Blood Cells % 0 %; Platelet Count 196 10^3/cmm (130-400); Red Blood Count 4.95 10^6/uL (4.1-5.3); Red Cell Distribution Width 13.2 % (12.1-15.1); White Blood Count 12.5 10^3/uL (4.0-10.0)
[2021-09-30 14:20] VITALS: BP 124/76; PULSE 74; RESP 16; TEMP 37; O2SAT 96
[2021-09-30 14:42] LABS: Alanine Aminotransferase 16 U/L (0-33); Albumin Level 4.5 g/dL (3.5-5.2); Alkaline Phosphatase 77 IU/L (35-105); Anion Gap 14.9 (5-19); Aspartate Amino Transferase 14 U/L (0-32); Blood Urea Nitrogen 7 mg/dL (6-20); Calcium 8.7 mg/dL (8.5-10.5); Carbon Dioxide 24 mmol/L (22-29); Chloride 105 mmol/L (98-107); Glomerular Filtration Rate 187.4 mL/min (90-130); Glucose 89 mg/dL (65-115); Osmolality Calculated 287 mOsm/kg (285-295); Potassium 3.9 mmol/L (3.5-5.1); Sodium 140 mmol/L (136-145); Total Bilirubin 0.4 mg/dL (0.15-1.2); Total Protein 7.5 g/dL (6.6-8.7)
--- NOTE | 2021-09-30 15:07 | W.ED.GENADLT ---
HPI - General Adult General: Chief complaint: General Medical Stated complaint: cough, cogestion, diarrhea, sob Time Seen by Provider: 09/30/21 14:54 Source: patient Mode of arrival: ambulatory Limitations: no limitations History of Present Illness: HPI narrative: Patient is a 31-year-old female who presents to ED today for multiple medical complaints. She states over the past few days she has had nasal congestion, runny nose, sinus pain/pressure, chest congestion and a nonproductive cough. She also has some complaints of some epigastric pain with radiation up into her chest. She states she does have a history of acid reflux and states her symptoms feel similar. She states she was on ranitidine but ran out of this medication and cannot afford more. She states her symptoms seem to worsen with eating. She is not had any episodes of vomiting. She is having a few episodes of diarrhea-no bloody or black/tarry stools. Patient has not been running fevers. Onset (ago): day(s) Exacerbating factors: eating Associated symptoms: Deny chest pain, dyspnea, headache(s), malaise, nausea, rash, palpitations, syncope or vomiting Review of Systems Const: Reports: body aches and fatigue; Denies: fever(s), chills or malaise ENMT: Reports: nasal discharge and nasal congestion; Denies: throat pain or odynophagia Card: Denies: chest pain, palpitations, irregular heart rhythm, edema, swelling of feet/ankles, lightheadedness, syncope or pre-syncope Resp: Reports: non-productive cough and chest congestion; Denies: dyspnea, wheezing or hemoptysis GI: Reports: abdominal pain and diarrhea; Denies: nausea, vomiting, hematochezia or melena : Denies: flank pain, dysuria, vaginal bleeding or vaginal discharge Musc: Denies: neck pain, back pain, extremity pain or joint pain Skin/Breast: Denies: rash Neuro: Denies: headache(s) or dizziness PFS ED PFSH: Medical History (Updated 09/30/21 @ 15:05 by DMITRIY Castro) Aftercare following surgery of the genitourinary system Cervical cancer Chronic pelvic pain in female Surgical History (Updated 07/29/21 @ 10:51 by Angelia Ochoa DO) H/O section H/O laparoscopy 01/29/2021- diagnostic laparoscopy and lysis of adhesions performed by Dr. Pretty at [facility] H/O LEEP H/O tubal ligation S/P tonsillectomy Family History Mother Hypertension Diabetes Hyperlipidemia Thyroid condition Family/Other Breast cancer paternal aunt, age onset unknown Father Colon cancer age onset unknown Denies family history of Ovarian cancer Clotting disorder Heart disease Anesthesia complication Bleeding disorder Uterine cancer Stroke Social History Smoking and tobacco status: current every day smoker cigarettes Packs smoked per day: 0.5 Alcohol intake: current Alcohol intake frequency: holidays/special occasions only Alcohol type: wine Female Reproductive History: Date of last menstrual period: 03/25/21 Physical Exam Const: COMMON NORMALS: no acute distress, patient oriented x3, no limitations and alert GENERAL APPEARANCE: cooperative NUTRITIONAL APPEARANCE: overweight ORIENTATION/CONSCIOUSNESS: Yes awake, Yes oriented to person, Yes oriented to place and Yes oriented to time HENMT: COMMON NORMALS: normocephalic, atraumatic and Normal external nose present HEAD & SCALP: normal to inspection, normocephalic and atraumatic FACE & SINUS: sinus tenderness NOSE: Normal external nose present Neck/C-Spine: COMMON NORMALS: full ROM, no lymphadenopathy and no meningeal signs Resp: COMMON NORMALS: normal respiratory effort and clear to auscultation bilaterally AUSCULTATION: clear to auscultation bilaterally Cardio: COMMON NORMALS: regular rate and regular rhythm RATE: regular rate RHYTHM: regular rhythm GI: COMMON NORMALS: Normal to inspection, nondistended, normoactive bowel sounds present, Soft to palpation, No hepatosplenomegaly present and no masses INSPECTION: Yes normal to inspection PALPATION: Yes Soft to palpation, Yes Tenderness to palpation present (GI) (mild epigastric) and Yes No hepatosplenomegaly present : COMMON NORMALS: Yes no CVA tenderness BLADDER/KIDNEY EXAM: Yes no CVA tenderness Back/Pelvis: COMMON NORMALS: no CVA tenderness Extremity: COMMON NORMALS: no clubbing, cyanosis or edema, no calf tenderness and no pedal edema Neuro: COMMON NORMALS: patient oriented x3 SENSORIUM/ORIENTATION: Yes alert, Yes oriented to person, Yes oriented to place and Yes oriented to time MENINGEAL SIGNS: Yes no meningeal signs Skin: COMMON NORMALS: no rashes or lesions noted GENERAL SKIN EXAM: no rashes or lesions noted Course Vital Signs: Vital signs: Vital Signs Temperature 98.6 F 09/30/21 14:20 Pulse Rate 74 09/30/21 14:20 Respiratory Rate 16 09/30/21 14:20 Blood Pressure 124/76 09/30/21 14:20 Pulse Oximetry 96 09/30/21 14:20 MDM - General Adult MDM Narrative: Medical decision making narrative: Patient appears in no acute distress. Her vital signs are perfect. Labs are unremarkable. COVID pending. CXR is normal. We will place her back on an H2 kj for acid reflux. Conservative treatment recommended for URI. Precautions discussed if COVID returns positive. Return to ED precautions given. Lab Data: Labs: Lab Results 09/30/21 09/30/21 14:02 14:02 WBC 12.5 10^3/uL H 10 ^3/uL (4.0-10.0) RBC 4.95 10^6/uL 10^6 /uL (4.1-5.3) Hgb 14.8 g/dL g/dL (11.5-15.3) Hct 44.2 % % (37.0-47.0) MCV 89.3 fl fl (81-99) MCH 29.9 pg pg (28.0-34.0) MCHC 33.5 g/dL g/dL (30.0-36.0) RDW 13.2 % % (12.1-15.1) Plt Count 196 10^3/cmm 10^3 /cmm (130-400) MPV 11.4 fL H fL (7.4-10.4) Neut % (Auto) 62.3 % % Lymph % (Auto) 30.3 % % Hendricks % (Auto) 5.3 % % Eos % (Auto) 1.6 % % Baso % (Auto) 0.3 % % Neut # (Auto) 7.77 10^3/uL H 10 ^3/uL (1.8-7.7) Lymph # (Auto) 3.8 10^3/uL 10^3/ uL (0.8-4.8) Hendricks # (Auto) 0.7 10^3/uL 10^3/ uL (0.2-0.9) Eos # (Auto) 0.2 10^3/uL 10^3/ uL (0.0-0.8) Baso # (Auto) 0.0 10^3/uL 10^3/ uL (0.0-0.1) Nucleated RBC % (a uto) 0 % % Nucleated RBCs # 0.0 /100WBC /100W BC Sodium 140 mmol/L mmol/L (136-145) Potassium 3.9 mmol/L mmol/L (3.5-5.1) Chloride 105 mmol/L mmol/L (98-107) Carbon Dioxide 24 mmol/L mmol/L (22-29) Anion Gap 14.9 (5-19) BUN 7 mg/dL mg/dL (6-20) Creatinine 0.4 mg/dL L mg/dL (0.5-0.9) GFR Calculation 187.4 mL/min H mL /min (90-130) Glucose 89 mg/dL mg/dL (65-115) Calculated Osmolal ity 287 mOsm/kg mOsm/ kg (285-295) Calcium 8.7 mg/dL mg/dL (8.5-10.5) Total Bilirubin 0.4 mg/dL mg/dL (0.15-1.2) AST 14 U/L U/L (0-32) ALT 16 U/L U/L (0-33) Alkaline Phosphata se 77 IU/L IU/L (35-105) Total Protein 7.5 g/dL g/dL (6.6-8.7) Albumin 4.5 g/dL g/dL (3.5-5.2) Globulin 3.0 g/dL g/dL (1.3-4.6) Imaging Data^: CXR: Radiologist's impression: [facility] [address] [place] [address] XRay Report Signed Patient: Emily Radford Unit #: [id number] : 1990 Age/Sex: 31 / F ADM Date: 09/30/21 Loc: ER Room/Bed: Attending Dr: Ordering Provider/Ordering MD: Patricia Wilson Date of Service: 09/30/21 Procedure(s): XR chest 1V portable [id number] Accession Number(s): [id number] Report Number: [id number] PROCEDURE INFORMATION: Exam: XR Chest Exam date and time: 09/30/2021 12:12 PM Age: 31 years old Clinical indication: Cough; Additional info: Cough, congestion TECHNIQUE: Imaging protocol: XR of the chest. Views: 1 view. COMPARISON: ES surgery / GI images 01/29/2021 9:57 AM FINDINGS: Lungs: Unremarkable. No consolidation. Pleural spaces: Unremarkable. No pleural effusion. No pneumothorax. Heart/Mediastinum: Unremarkable. No cardiomegaly. Bones/joints: Unremarkable. XR/XR chest 1V portable [id number] IMPRESSION: No acute findings. Dictated By: Ciarra Awad MD Signed By: Ciarra Awad MD Signed Date/Time: 09/30/21 1318 DD/ 1212 Discharge Plan Discharge Patient Disposition: Home Clinical Impression: Viral upper respiratory tract infection with cough Acid reflux Qualifiers: Esophagitis presence: without esophagitis Qualified Code(s): K21.9 - Gastro-esophageal reflux disease without esophagitis Condition: Stable Prescriptions: New Pepcid 20 mg tablet 20 mg PO BID 28 Days Qty: 56 RF: 0 No Action sulfamethoxazole-trimethoprim [Bactrim DS] 800-160 mg tablet 1 tab PO BID Qty: 14 RF: 0 Midol 500-25 mg tablet 2 tab PO Q6H PRN (Reason: Cramps) RF: 0 citalopram [Celexa] 10 mg tablet 10 mg PO DAILY Qty: 30 RF: 0 cetirizine [Zyrtec] 10 mg Tablet 10 mg PO DAILY PRN (Reason: allergy symp) RF: 0 ibuprofen 800 mg tablet 800 mg PO TID PRN (Reason: pain) Qty: 60 RF: 0 Discharge Orders: Discharge ED (Routine); Ordered 09/30/21 Ordered By: Patricia Wilson Referrals: Angelia Ochoa DO [Primary Care Provider] - Coding Level of Care Code ED French [employer] Folder for [facility]
[2021-10-02 03:07] LABS: Quest SARS-CoV-2 RNA NOT DETECTED (NOT DETECTED)
== END 2021-09-30 15:13 | disposition home or self-care (01) ==
PROVIDERS: Emergency Provider Physician Assistant; PCP Family Medicine
DX: J06.9 Acute upper respiratory infection, unspecified (principal); K21.9 Gastro-esophageal reflux disease without esophagitis; Z85.41 Personal history of malignant neoplasm of cervix uteri; F17.210 Nicotine dependence, cigarettes, uncomplicated; Z20.822 Contact with and (suspected) exposure to COVID-19
CPT/HCPCS: 71045; 80053; 85025; 87635; 99282

== ENCOUNTER 2022-08-15 14:16 | Emergency (ER) | payer MEDICAID, SELFPAY ==
[2022-08-15 14:20] VITALS: BP 165/88; PULSE 84; RESP 16; TEMP 36.5; O2SAT 97; BMI 39.4
--- NOTE | 2022-08-15 14:36 | ED_ITS ---
HPI - General Adult General: Chief complaint: General Medical Stated complaint: chest tightness Time Seen by Provider: 08/15/22 14:27 Source: patient Mode of arrival: ambulatory Limitations: no limitations History of Present Illness: This patient comes to emergency department because of generalized body aches, subjective fevers, soreness etc. She states the symptoms began yesterday evening and have continued today. She states she slept fitfully last night because of body aches and fevers. She specifically denies difficulty breathing, chest pain, productive cough etc. She states she did have loose stools today but no vomiting. She states that she was exposed to a family member who she says was at a doctor's office and was tested for flu. She has not received influenza vaccine but has received COVID vaccinations. She states that no one in her immediate family is ill other than the after mentioned family member who lives outside the home. She is a tobacco user. She denies any wheezing, stridor etc. He denies dysuria. She states her last menstrual period was approximately 10 days ago. Associated symptoms: Deny chest pain, dyspnea, headache(s), nausea, rash, palpitations, syncope or vomiting Review of Systems Const: Reports: fever(s), chills, body aches and change in appetite Eyes: Denies: change in vision or eye discharge ENMT: Reports: odynophagia; Denies: nasal discharge, nasal congestion or nasal obstruction Card: Denies: chest pain, palpitations, syncope or pre-syncope Resp: Denies: dyspnea, productive cough or non-productive cough GI: Reports: diarrhea; Denies: abdominal pain, nausea or vomiting : Denies: flank pain, difficulty voiding or dysuria Musc: Denies: neck pain, back pain, extremity pain or extremity swelling Skin/Breast: Denies: rash, pruritus or skin tenderness Neuro: Denies: headache(s), numbness in extremities or weakness in extremities Psych: Denies: anxiety or depression All/Imm: Denies: urticaria or throat swelling PFSH ED PFSH: Medical History Aftercare following surgery of the genitourinary system Cervical cancer Chronic pelvic pain in female Obesity (BMI 35.0-39.9 without comorbidity) Surgical History H/O section H/O laparoscopy 01/29/2021- diagnostic laparoscopy and lysis of adhesions performed by Dr. Pretty at [facility] H/O LEEP H/O tubal ligation S/P tonsillectomy Family History Mother Hypertension Diabetes Hyperlipidemia Thyroid condition Family/Other Breast cancer paternal aunt, age onset unknown Father Colon cancer age onset unknown Denies family history of Ovarian cancer Clotting disorder Heart disease Anesthesia complication Bleeding disorder Uterine cancer Stroke Social History Smoking and tobacco status: current every day smoker cigarettes Packs smoked per day: 0.5 Alcohol intake: current Alcohol intake frequency: holidays/special occasions only Alcohol type: wine Physical Exam Narrative: EXAM NARRATIVE: The patient speaks in complete sentences without dyspnea. She appears to be comfortable when sitting in the examination room. She answers questions in a goal-directed fashion. Const: COMMON NORMALS: no acute distress and patient oriented x3 GENERAL APPEARANCE: cooperative and comfortable NUTRITIONAL APPEARANCE: overweight HENMT: COMMON NORMALS: normocephalic, Normal nasal mucous membranes and turbinates present and moist oral mucous membranes HEAD & SCALP: normocephalic NOSE: Normal nasal mucous membranes and turbinates present MOUTH: tongue normal; no muffled voice THROAT: tonsils normal, posterior oropharynx abnormal erythema (Mild) and postnasal drainage Eye: COMMON NORMALS: Equal, round and reactive pupils present, EOMs intact bilaterally and conjunctivae normal CONJUNCTIVA: Yes conjunctivae normal PUPIL: Yes Equal, round and reactive pupils present Neck/C-Spine: COMMON NORMALS: full ROM, no lymphadenopathy and Thyroid normal THYROID: Thyroid normal Lymph: LYMPHATIC: no lymphadenopathy noted Chest: COMMONS NORMALS: normal inspection of the chest and normal palpation of entire chest wall Resp: COMMON NORMALS: normal respiratory effort, No retractions, No use of accessory muscles and clear to auscultation bilaterally EFFORT & INSPECTION: Yes able to speak in complete sentences AUSCULTATION: clear to auscultation bilaterally Cardio: COMMON NORMALS: regular rate, regular rhythm, No murmurs present (Cardio) and Peripheral pulses 2+ throughout RATE: regular rate RHYTHM: regular rhythm PERIPHERAL PULSES: Peripheral pulses 2+ throughout GI: COMMON NORMALS: Normal to inspection, nondistended, normoactive bowel sounds present, Soft to palpation, non-tender and no masses PALPATION: Yes Soft to palpation : COMMON NORMALS: Yes no CVA tenderness BLADDER/KIDNEY EXAM: Yes no CVA tenderness Back/Pelvis: COMMON NORMALS: no CVA tenderness, thoracic and lumbar spine normal to inspection, no thoracic nor lumbar tenderness, thoraco-lumbar ROM normal and straight leg raise negative bilaterally Extremity: COMMON NORMALS: normal to inspection, full ROM, no calf tenderness and no pedal edema Neuro: COMMON NORMALS: patient oriented x3, moves all extremities, no focal motor deficits and no sensory deficits noted Psych: COMMON NORMALS: mental status grossly normal Skin: COMMON NORMALS: no rashes or lesions noted, turgor normal and no petechiae GENERAL SKIN EXAM: no rashes or lesions noted and turgor normal Course Reevaluation(s): Reevaluation #1: Reviewed influenza, COVID, strep testing all negative. Patient was reexamined. She appeared to be comfortable in no acute distress. Lungs were reauscultated and were clear without wheezes or crackles. Chest was tender upper anterior portion to palpation and with deep breaths. No subcutaneous emphysema, crepitance etc. She is speaking in complete sentences. No calf tenderness, low gestalt for thromboembolic issues, PERC negative. Consistent with a winter elisha l illness of nonspecified etiology at this point. Discussed home care, expected course and follow-up. She voiced understanding. Time: 15:31 Vital Signs: Vital signs: Vital Signs Temperature 97.7 F 08/15/22 14:20 Pulse Rate 84 08/15/22 14:20 Respiratory Rate 16 08/15/22 14:20 Blood Pressure 165/88 08/15/22 14:20 Pulse Oximetry 97 08/15/22 14:20 Oxygen Delivery Me thod 08/15/22 14:20 [facility] - General Adult Medical Decision Making Patient with 24 hours of symptoms of body aches, subjective fever, malaise. Chest soreness with dry cough which was nonsustained. Testing at this point for usual and current pathogens of concern was unremarkable. Her clinical exam did not reveal any evidence that suggest other potential serious etiologies of her current presentation. We discussed expected course, single injection of corticosteroids for symptomatic relief with close follow-up if she develops any new persistent or worsening symptoms. She acknowledged her discussion. Stable for discharge at this time. Lab Data Laboratory Results Influenza Type A Ag negative (Negative) 08/15/22 14:53 Influenza Type B Ag negative (Negative) 08/15/22 14:53 SARS-CoV-2 Ag (Rapid) negative (Negative) 08/15/22 14:43 Group A Strep Rapid Negative (Negative) 08/15/22 14:43 Discharge Plan Discharge Patient Disposition: Home Clinical Impression: Acute viral syndrome Condition: Stable Prescriptions: No Action Midol 500-25 mg tablet 2 tab PO Q6H PRN (Reason: Cramps) (DME) pen needle, diabetic 33 gauge x 5/32 needle See Rx Instructions .ROUTE .MEDSUPPLY Qty: 100 5RF Rx Instructions: 1 time day buspirone 5 mg tablet 5 mg PO BID PRN (Reason: anxiety) Qty: 60 0RF citalopram 20 mg tablet 20 mg PO DAILY Qty: 30 0RF cetirizine [Zyrtec] 10 mg Tablet 10 mg PO DAILY PRN (Reason: allergy symp) Discharge Orders: Discharge ED (Routine); Ordered 08/15/22 Ordered By: Jeffrey Velasco Referrals: Angelia Ochoa DO [Primary Care Provider] - 4-7 days Discharge Diet: Advance as tolerated Discharge Activity: Increase activity as tolerated Patient Instructions: Opioid Safety, Pain Management Activity Restrictions/Additional Instructions: As we discussed while you are in the emergency department your testing today did not reveal any evidence you have influenza, COVID, strep streptococcal pharyngitis. There are many other potential viruses that cause your current symptoms. We recommend either acetaminophen or ibuprofen for body aches and fevers, drinking at least 2 quarts of fluids daily. Do not smoke cigarettes. Advance to a regular diet as soon as you are able to tolerate normal food. If your symptoms persist, worsen or other symptoms develop such as high fevers productive cough shortness of breath sustained chest pain etc. return to this or the nearest emergency department. Otherwise follow-up with your regular doctor for routine care. Coding Level of Care Code ED Desktop Technician for Dennis Fwnancy Exam Comprehensive
[2022-08-15 15:08] LABS: Rapid Strep A Test Negative (Negative)
[2022-08-15 15:14] LABS: Influenza A by IFA negative (Negative); Influenza B by IFA negative (Negative)
[2022-08-15 15:14] LABS: SARS Covid-2 Antigen negative (Negative)
[2022-08-15] MEDS: dexamethasone 10 mg/mL INJ IM (15:47)
[2022-08-15 16:23] VITALS: BP 122/70; PULSE 72
== END 2022-08-15 16:25 | disposition home or self-care (01) ==
PROVIDERS: Emergency Provider Emergency Medicine; PCP Family Medicine
DX: B34.9 Viral infection, unspecified (principal)
CPT/HCPCS: 87081; 87426; 87804; 87880; 96372; 99284; J1100

== ENCOUNTER → 2022-12-25 15:50 | Outpatient (BNVA) | payer MEDICAID, SELFPAY | PROVIDERS: PCP Family Medicine; Visit Provider Obstetrics & Gynecology | DX: N94.6 Dysmenorrhea, unspecified (principal); N73.0 Acute parametritis and pelvic cellulitis | CPT/HCPCS: 87491; 87591; 87661 ==

== ENCOUNTER → 2023-01-01 14:45 | Outpatient (BNVA) | payer MEDICAID, SELFPAY | PROVIDERS: PCP Family Medicine; Visit Provider Obstetrics & Gynecology | DX: N94.6 Dysmenorrhea, unspecified (principal) | CPT/HCPCS: 83001; 84146; 84443; 84702; 85025 ==

== ENCOUNTER → 2025-05-10 13:06 | Outpatient (BNVA) | payer MEDICAID, SELFPAY | PROVIDERS: PCP Family Medicine; Visit Provider Emergency Medicine | DX: R06.02 Shortness of breath (principal); R60.0 Localized edema | CPT/HCPCS: 71046; 80048; 83880; 85025 ==

== ENCOUNTER 2025-06-27 14:46 | Emergency (ER) | payer MEDICAID, SELFPAY ==
--- OUTSIDE RECORDS SUMMARY | 2025-06-27 14:53 | XMS_ITS | Patient Health Record ---
Author Organization [facility] Address [address] [place] [address] Care Team Providers Care [place] Nurse Name Role Phone Jackson Berrios Unavailable [phone] Reason For Referral No Information Medications Medication SIG (Take, Route, Frequency, Duration) Notes Start Date End Date Status Ranitidine HCl 75 MG Tablet Take 1 tablet(s) by mouth bid prn Oral; Duration: 30 Ranitidine 75mg Tablet Take 1 tablet(s) by mouth bid prn 12/25/2010 Active Multivitamin Take 1 cap by mouth qam; Duration: 30 *please review for potential update for e-prescription and drug interaction check* Multivitamin Capsules Take 1 cap by mouth qam 12/25/2010 Active Promethazine HCl 12.5 MG Tablet Take 1 tablet(s) by mouth q 4 to 6 hr Oral; Duration: 30 Promethazine HCl 12.5mg Tablet Take 1 tablet(s) by mouth q 4 to 6 hr 12/25/2010 Active Social History Social History Additional Details Category Social Info Options Details zzMigrated Social History Migrated Social History Advance Directive: Current and Verified Signed on 12/23/2011, withhold mechanical ventilator, withhold CPR Organ Donation: Patient refuses Organ Donation Problems Problem Type SNOMED Code ICD Code Onset Dates Problem Status W/U Status Risk Notes Problem (59068546) (V22.1) 12/26/19 11 Active confirmed [id number]- Problem Hordeolum externum (6666989) Stye of external lid (373.11) 12/23/19 12 Problem resolved confirmed [id number]- Problem Fever (387801854) Fever (780.6) 11/19/19 04 Problem resolved confirmed [id number]- Problem Pre-employment screening (procedure) (835283402) Health exam for pre-employment screening (V70.5) 08/15/20 14 Problem resolved confirmed [id number]- Problem Ear ache (245840007) Ear ache (388.71) 11/09/19 06 Problem resolved confirmed [id number]- Problem Excessive weight gain (682811167) Excessive weight gain (783.1) 11/09/19 06 Problem resolved confirmed [id number]- Problem Acute maxillary sinusitis (59479337) Acute sinusitis, maxillary (461.0) 11/19/19 04 Problem resolved confirmed [id number]- Problem Sore throat (821215240) Sore throat (784.1) 11/19/19 04 Problem resolved confirmed [id number]- Problem Tobacco user (511113735) Tobacco abuse affecting health (305.1) 08/15/20 14 Problem resolved confirmed [id number]- Problem Acute upper respiratory infection (62214753) Acute upper respiratory infection (465.8) 01/06/20 05 Problem resolved confirmed [id number]- Problem Knee pain (1854741154) Knee pain (719.46) 12/26/19 11 Problem resolved confirmed [id number]- Problem Contact dermatitis caused by plants (disorder) (823956936) Dermatitis due to poison sana (692.6) 02/28/20 05 Problem resolved confirmed [id number]- Problem Nausea and vomiting (93424783) Nausea and vomiting (787.01) 07/12/20 06 Problem resolved confirmed [id number]- Problem Influenza vaccination (89320326) Influenza vaccination (V04.81) 08/15/20 14 Problem resolved confirmed [id number]- Problem Exposure to communicable disease (982751497) Contact with or exposure to communicable diseases, unspecified (V01.9) 08/15/20 14 Problem resolved confirmed [id number]- Plan Of Treatment No Information Medical (General) History Surgical History Surgery Date(Month/Year) NONE
[2025-06-27 14:57] VITALS: BP 128/80; PULSE 80; TEMP 36.8; O2SAT 93; BMI 38.4
--- NOTE | 2025-06-27 15:28 | ED_ITS ---
HPI - Headache General: Chief Complaint: Headache Stated Complaint: Head hurting on R side going down past ear Time Seen by Provider: 06/27/25 15:21 History of Present Illness: 35-year-old female presents emergency ro om complaining of right sided migraine that radiates from the occipital region around to her frontal area and at times into her neck and her arm on the right. She has not had any numbness and tingling in the arm. She states she has had problems with headaches in the past this 1 has been similar to what she has had in the past but much more intense more unilateral than it usually is no recent head trauma. No fever sweats or chills. She tried [id number] medications at home with no relief. Associated symptoms: Deny chest pain, fever(s) or rash Related Data Home Medications ?Medication ?Instructions ?Recorded ?Confirmed acetaminophen-pamabrom 500 mg-25 2 tab PO Q6H PRN Cram ps 01/27/21 06/27/25 mg tablet (Midol) cetirizine 10 mg tablet (Zyrtec) 10 mg PO DAILY PRN Al lergy Symptoms 06/27/25 06/27/25 Previous Rx's ?Medication ?Instructions ?Recorded albuterol sulfate 90 mcg/actuation 2 puff inhalation Q 6H PRN 05/29/25 aerosol inhaler shortness of breath or wheez ing #8.5 grams montelukast 10 mg tablet 10 mg PO DAILY #30 tabs 05/05 03/28 (Singulair) fluticasone 250 mcg-salmeterol 50 1 inh inhalation Q12 H #60 ea 06/25/25 mcg/dose blistr powdr for inhalation (Advair Diskus) nicotine 14 mg/24 hr daily 1 patch transdermal Q24H #2 8 ea 06/25/25 transdermal patch (Nicoderm CQ) promethazine 25 mg tablet 25 mg PO Q6H PRN nausea and 06/27/25 vomiting #20 tabs Allergies Allergy/AdvReac Type Severity Reaction Status Date / Time Penicillins Allergy Severe yeast Verified 06/27/25 15:02 infection diphenhydramine (From Allergy ALGY-Hives Verified 06/27/25 15:02 Benadryl) Review of Systems Const: Denies: fever(s) or chills Card: Denies: chest pain Resp: Denies: dyspnea GI: Denies: abdominal pain : Denies: dysuria, urinary frequency or urinary urgency Musc: Denies: neck pain or back pain Skin/Breast: Denies: rash PFSH ED PFSH: Medical History History of peripheral edema Obesity (BMI 35.0-39.9 without comorbidity) Aftercare following surgery of the genitourinary system Chronic pelvic pain in female Cervical cancer Surgical History H/O laparoscopy 01/29/2021- diagnostic laparoscopy and lysis of adhesions performed by Dr. Pretty at [facility] H/O LEEP H/O section H/O tubal ligation S/P tonsillectomy Family History Mother Hypertension Diabetes Hyperlipidemia Thyroid disease Family/Other Breast cancer paternal aunt, age onset unknown Father Colon cancer age onset unknown Denies family history of Ovarian cancer Clotting disorder Heart disease Anesthesia complication Bleeding disorder Uterine cancer Stroke Social History Smoking and tobacco/nicotine status: current every day tobacco/nicotine user cigarettes Packs smoked per day: 0.5 Alcohol intake: current Alcohol intake frequency: holidays/special occasions only Alcohol type: wine Substance/Drug Use: never Physical Exam Const: COMMON NORMALS: no acute distress GENERAL APPEARANCE: cooperative and comfortable ORIENTATION/CONSCIOUSNESS: Yes awake, Yes oriented to person, Yes oriented to place and Yes oriented to time HENMT: COMMON NORMALS: normocephalic, atraumatic and hearing grossly normal bilaterally HEAD & SCALP: normocephalic and atraumatic Resp: COMMON NORMALS: normal respiratory effort, No retractions, No use of accessory muscles and clear to auscultation bilaterally AUSCULTATION: clear to auscultation bilaterally Cardio: COMMON NORMALS: regular rate, regular rhythm and No murmurs present (Cardio) RATE: regular rate RHYTHM: regular rhythm GI: COMMON NORMALS: Soft to palpation and No hepatosplenomegaly present AUSCULTATION: Yes normoactive bowel sounds PALPATION: Yes Soft to palpation, No Tenderness to palpation present (GI), No Guarding due to palpation present (GI) and Yes No hepatosplenomegaly present Extremity: COMMON NORMALS: normal to inspection, capillary refill normal, no clubbing, cyanosis or edema, no calf tenderness and no pedal edema Neuro: SENSORIUM/ORIENTATION: Yes oriented to person, Yes oriented to place and Yes oriented to time Skin: COMMON NORMALS: no rashes or lesions noted GENERAL SKIN EXAM: no rashes or lesions noted Course Vital Signs: Vital signs: Vital Signs Temperature 98.2 F 06/27/25 14:57 Pulse Rate 80 06/27/25 16:23 Blood Pressure 124/89 06/27/25 16:23 Pulse Oximetry 93 06/27/25 16:23 Oxygen Delivery Me thod Room Air 06/27/25 14:57 MDM - Headache Medical Decision Making Migrainous headache resolved with medications given discharge patient home discussed with her prior to discharge she is having these weekly and sometimes more than once a week where it disrupts her activities encouraged her to follow- up with primary care to look at headache prophylaxis No radiology studies performed this visit Discharge Plan Discharge Patient Disposition: Home Clinical Impression: Migraine Condition: Stable Prescriptions: New promethazine 25 mg tablet 25 mg PO Q6H PRN (Reason: nausea and vomiting) Qty: 20 0RF No Action Midol 500-25 mg tablet 2 tab PO Q6H PRN (Reason: Cramps) montelukast [Singulair] 10 mg tablet 10 mg PO DAILY Qty: 30 5RF albuterol sulfate 90 mcg/actuation HFA aerosol inhaler 2 puff inhalation Q6H PRN (Reason: shortness of breath or wheezing) Qty: 8.5 3RF fluticasone propion-salmeterol [Advair Diskus] 250-50 mcg/dose blister with device 1 inh inhalation Q12H Qty: 60 5RF nicotine [Nicoderm CQ] 14 mg/24 hr patch 24 hour 1 patch transdermal Q24H Qty: 28 2RF cetirizine [Zyrtec] 10 mg tablet 10 mg PO DAILY PRN (Reason: Allergy Symptoms) Discharge Orders: Discharge ED (Routine); Ordered 06/27/25 Ordered By: Richie Weir Referrals: Angelia Ochoa DO [Primary Care Provider, Family Practice] Discharge Diet: Usual diet Discharge Activity: Increase activity as tolerated Patient Instructions: Opioid Safety, Pain Management, Patient Portal & Shea Instructions Activity Restrictions/Additional Instructions: [facility] today. It is very important that you follow up as instructed or that you return to the Emergency Department should you have concerns or if your condition changes or worsens in any way. Emergency department visits are focused on emergent conditions, in some cases you may require further evaluation on an outpatient basis. You were seen in the emergency room with complaints of headache. You responded well to the medications given. Given number of times you reported you have a headache in a month you may consider seeing your primary care doctor to discuss headache prophylaxis treatments. We discharged you home with promethazine to use as needed along with your Excedrin Migraine if you get recurrent headaches. (Please note that included in your discharge packet is information concerning opioid safety and pain management. This information is given to all patients were discharged from the ER regardless of their discharge diagnosis or the medicines they usually take or are prescribed.) Print Language: Bahamian Coding Level of Care Code ED Scarfing Machine Operator for Dennis Romero
[2025-06-27] MEDS: methylPREDNISolone sod succ 125 mg/2 mL INJ IVP (15:44)
[2025-06-27 16:04] VITALS: BP 142/94; PULSE 78; O2SAT 98
[2025-06-27 16:23] VITALS: BP 124/89; PULSE 80; O2SAT 93
== END 2025-06-27 16:27 | disposition home or self-care (01) ==
PROVIDERS: Emergency Provider Family Medicine; PCP Family Medicine
DX: G43.909 Migraine, unspecified, not intractable, without status migrainosus (principal); F17.210 Nicotine dependence, cigarettes, uncomplicated; Z85.41 Personal history of malignant neoplasm of cervix uteri
CPT/HCPCS: 96374; 96375; 99284; J0780; J1110; J1885; J2919; J7030